=== PATIENT | male | born 1995 | race Caucasian/White ===

== ENCOUNTER 2018-05-09 10:34 | Emergency (ER) | payer OTHER ==
[~2018-05-09] VITALS: Ht 177.8 cm; Wt 86.1 kg
[2018-05-09] MEDS ORDERED: MUCI120T PO (10:44)
[2018-05-09] MEDS ORDERED: IPRATROPIUM 0.5MG/ALBUTEROL 2.5MG INH SOL UD 3ML (DUONEB)(J7620) NEB ONE (11:15)
[2018-05-09] MEDS ORDERED: ALBUTEROL 90 MCG/ACT 8GM HFA INHALER INH ONE (11:45)
--- NOTE | 2018-05-09 11:48 | REP ---
CHEST, TWO VIEWS: There is no evidence of acute infiltrate. No pleural effusion is seen. The heart is normal in size. The mediastinal silhouette is unremarkable. The visualized osseous structures are intact. IMPRESSION: No acute pulmonary disease. Electronically Signed by Dayne Escalante MD 05/09/2018 01:57 P
[2018-05-09] MEDS ORDERED: TESS100C PO (12:11)
[2018-05-09] MEDS ORDERED: VENTAER INH (12:11)
[2018-05-09 12:16] VITALS: BP 119/73
== END 2018-05-09 12:19 | disposition home or self-care (01) ==
LOC: M ED 10:34
DX: J45.901 Unspecified asthma with (acute) exacerbation (principal)

== ENCOUNTER 2018-07-10 14:58 | Emergency (ER) | payer OTHER ==
[~2018-07-10] VITALS: Ht 180.3 cm; Wt 86.4 kg
[~2018-07-10 14:58] MED LIST: MUCI120T PO; TESS100C PO; VENTAER INH
[2018-07-10 14:59] VITALS: BP 146/88
[2018-07-10] MEDS ORDERED: PRAZ1CAP PO (15:11)
[2018-07-10] MEDS ORDERED: TRAZ-252 PO (15:11)
[2018-07-10] MEDS ORDERED: WELLTAB40 PO (15:11)
[2018-07-10] MEDS ORDERED: FAMO40TA3 PO (18:11)
[2018-07-10] MEDS ORDERED: CETI10CH PO (18:11)
[2018-07-10] MEDS ORDERED: PRED20TA PO (18:11)
[2018-07-10] MEDS ORDERED: CETIRIZINE (ZyrTEC) 10 MG TAB PO ONE (18:15)
[2018-07-10] MEDS ORDERED: FAMOTIDINE 20 MG TAB PO ONE (18:15)
[2018-07-10] MEDS ORDERED: predniSONE 20 MG TAB PO ONE (18:15)
== END 2018-07-10 18:16 | disposition home or self-care (01) ==
LOC: M ED 14:58
DX: T78.40XA Allergy, unspecified, initial encounter (principal); Y92.9 Unspecified place or not applicable; Y93.9 Activity, unspecified; F32.9 Major depressive disorder, single episode, unspecified; Z77.098 Contact with and (suspected) exposure to other hazardous, chiefly nonmedicinal, chemicals; Z79.899 Other long term (current) drug therapy